=== PATIENT | female | born 1990 | race Caucasian/White ===

== ENCOUNTER 2020-10-01 07:00 | Inpatient (IN) ==
[2020-10-01] MEDS ORDERED: EPHEDrine 50 MG/ML VIAL ONE (07:30)
[2020-10-01] MEDS ORDERED: Ondansetron 4 MG/2 ML VIAL ONE (07:30)
[2020-10-01] MEDS ORDERED: *HR* FentaNYL (PF) 100 MCG/2 ML VIAL ONE (07:30)
[2020-10-01] MEDS ORDERED: *HR* Morphine Sulfate/PF 10 MG/10 ML AMPUL ONE (07:30)
[2020-10-01] MEDS ORDERED: Oxytocin 20 units/ LR 1000 mL 20 UNIT/1,000 ML BAG IVC ONE ×2 (07:36→07:41)
[2020-10-01] MEDS ORDERED: *HR* HYDROmorphone PF 0.5 MG/0.5 ML SYRINGE IVP PRN (07:39)
[2020-10-01] MEDS ORDERED: Ondansetron 4 MG/2 ML VIAL IVP PRN ×2 (07:39→13:22)
[2020-10-01] MEDS ORDERED: Naloxone 0.4 MG/ML INJ IVP PRN (07:39)
[2020-10-01] MEDS ORDERED: Promethazine 6.25 MG in Water for inj. (sterile) 20 ML IVPB PRN (07:39)
[2020-10-01] MEDS ORDERED: Famotidine 20 MG/2 ML VIAL IVP ONE (07:41)
[2020-10-01] MEDS ORDERED: CeFAZolin Syr 3,000MG/30 ML 3,000 MG/30 ML SYRINGE IVPB ONE (07:41)
[2020-10-01] MEDS ORDERED: Metoclopramide 10 MG/2 ML VIAL IVP ONE (07:41)
[2020-10-01] MEDS ORDERED: Ringers Solution, Lactated 1,000 ML IVC ONE (07:41)
[2020-10-01] MEDS ORDERED: Oxytocin 20 units/ LR 1000 mL 20 UNIT/1,000 ML BAG IVC SCH ×2 (07:45→13:22)
[2020-10-01] MEDS ORDERED: Ringers Solution, Lactated 1,000 ML IVC SCH ×2 (07:45)
[2020-10-01] MEDS ORDERED: Acetaminophen IV 1,000 MG/100 ML INFUS..BTL ONE (07:57)
[2020-10-01 08:03] LABS: Basophils % 0.2 %; Eosinophils # 0.2 K/mcL (0.0-0.6); Eosinophils % 1.3 %; Hematocrit 39.2 % (35.3-44.9); Hemoglobin 12.6 g/dL (11.5-15.4); Immature Granulocytes % 0.5 % (0-4); Lymphocytes # 2.7 K/mcL (0.6-4.6); Mean Corpuscular HGB Conc 32.1 g/dL (31.6-35.5); Mean Corpuscular Hemoglobin 27.1 pg (28.0-33.3); Mean Corpuscular Volume 84.3 fL (83.0-100.0); Mean Platelet Volume 11.7 fL (9.4-12.4); Monocytes # 0.6 K/mcL (0.0-1.3); Monocytes % 4.7 %; Neutrophils # 8.3 K/mcL (1.6-8.9); Platelet Count 272 K/mcL (140-400); Red Blood Count 4.65 M/mcL (3.82-4.97); Red Cell Distribution Width 17.4 % (11.5-14.5); Segmented Neutrophils % 70.3 %; White Blood Count 11.7 K/mcL (4.3-11.1)
[2020-10-01] MEDS ORDERED: Clindamycin 900 MG/50 ML 900 MG/50 ML IV.SOLN IVPB STA (08:52)
[2020-10-01 09:20] LABS: Amphetamine Screen,Urine Negative ng/mL (Cutoff=1000); Barbiturate Screen,Urine Negative ng/mL (Cutoff=200); Benzodiazepines Screen,Urine Negative ng/mL (Cutoff=200); Cannabinoid Screen,Urine Negative ng/mL (Cutoff = 50); Cocaine Screen,Urine Negative ng/mL (Cutoff= 300); Opiate Screen,Urine Negative ng/mL (Cutoff=300); Phencyclidine Screen,Urine Negative ng/mL (Cutoff=25)
[2020-10-01] MEDS ORDERED: *HR* Phenylephrine 10 MG/ML VIAL ONE (09:24)
[2020-10-01] MEDS ORDERED: Sennosides 8.6 MG TABLET PO PRN (13:22)
[2020-10-01] MEDS ORDERED: Metoclopramide 10 MG/2 ML VIAL IVP PRN (13:22)
[2020-10-01] MEDS ORDERED: *HR* OxyCODONE/APAP 5/325 TABLET PO PRN (13:22)
[2020-10-01] MEDS: Ibuprofen 600 MG TABLET PO PRN ×2 (13:54→21:36)
[2020-10-01] MEDS: Simethicone 80 MG TAB.CHEW PO PRN (14:55)
[2020-10-01] MEDS: metroNIDAZOLE 500 MG TABLET PO SCH ×2 (14:55→21:36)
[2020-10-01] MEDS: Clindamycin 900 MG/50 ML 900 MG/50 ML IV.SOLN IVPB SCH (15:37)
[2020-10-02] MEDS: Clindamycin 900 MG/50 ML 900 MG/50 ML IV.SOLN IVPB SCH ×2 (00:14→09:00)
[2020-10-02] MEDS: Ibuprofen 600 MG TABLET PO PRN ×4 (04:54→21:53)
[2020-10-02 07:42] LABS: Basophils % 0.1 %; Eosinophils # 0.1 K/mcL (0.0-0.6); Eosinophils % 1.4 %; Hematocrit 34.3 % (35.3-44.9); Immature Granulocytes % 0.7 % (0-4); Lymphocytes # 1.8 K/mcL (0.6-4.6); Lymphocytes % 19.2 %; Mean Corpuscular HGB Conc 31.2 g/dL (31.6-35.5); Mean Corpuscular Hemoglobin 27.1 pg (28.0-33.3); Mean Corpuscular Volume 86.8 fL (83.0-100.0); Mean Platelet Volume 11.4 fL (9.4-12.4); Monocytes # 0.4 K/mcL (0.0-1.3); Monocytes % 4.2 %; Neutrophils # 6.8 K/mcL (1.6-8.9); Platelet Count 178 K/mcL (140-400); Red Blood Count 3.95 M/mcL (3.82-4.97); Red Cell Distribution Width 17.4 % (11.5-14.5); Segmented Neutrophils % 74.4 %; White Blood Count 9.2 K/mcL (4.3-11.1)
[2020-10-02 07:44] LABS: Hemoglobin 10.7 g/dL (11.5-15.4)
[2020-10-02] MEDS: Prenatal Vit/FA 1 EACH TABLET PO SCH (07:47)
[2020-10-02] MEDS: metroNIDAZOLE 500 MG TABLET PO SCH ×3 (09:01→21:53)
[2020-10-02] MEDS ORDERED: FLU Vac QV 20-21 (6Month+)/PF 0.5 ML SYRINGE IM ONE (09:11)
[2020-10-02] MEDS: Simethicone 80 MG TAB.CHEW PO PRN (21:53)
[2020-10-03] MEDS: *HR* Acetaminophen w/Cod 300-30 mg 1 TAB TABLET PO PRN ×3 (01:24→16:26)
[2020-10-03] MEDS: metroNIDAZOLE 500 MG TABLET PO SCH (07:44)
[2020-10-03] MEDS: Prenatal Vit/FA 1 EACH TABLET PO SCH (07:44)
[2020-10-03 08:02] VITALS: BP 124/85
[2020-10-03] MEDS: Ibuprofen 600 MG TABLET PO PRN (14:20)
== END 2020-10-03 16:48 | disposition home or self-care (01) | DRG 787 ==
LOC: 1NENULAB 07:00 → 1NENUOBS 12:32
PROVIDERS: ADMIT Obstetrics & Gynecology; ATTEND Obstetrics & Gynecology